=== PATIENT | male | born 1990 | race Caucasian/White ===

== ENCOUNTER 2022-05-02 11:07 | Emergency (ER) | payer OTHER, SELFPAY ==
[2022-05-02 11:15] VITALS: BP 154/94; PULSE 88; RESP 16; TEMP 36.8; O2SAT 96; BMI 33.3
[2022-05-02 11:41] LABS: Add Manual Diff / Slide Review NO; Basophils Absolute Auto 0 /uL (0-100); Basophils Percent Auto 0.4 % (0-2); Eosinophils Absolute Auto 100 /uL (0-450); Eosinophils Percent Auto 0.8 % (2-4); Hematocrit 46.7 % (41-53); Hemoglobin 16.4 g/dL (13.5-17.5); Lymphocytes Absolute Auto 1600 /uL (1100-4500); Lymphocytes Percent Auto 22.6 % (25-40); Mean Corpuscular Hemoglobin 30.1 PG (26-34); Monocytes Absolute Auto 600 /uL (0-900); Neutrophils Absolute Auto 5000 /uL (1500-7000); Neutrophils Percent Auto 68.2 % (50-75); Platelet Count 265 X10^3/uL (150-400); Red Blood Cell Count 5.43 X10^6/uL (4.5-5.9); Red Cell Distribution Width 13.3 % (11.6-14.8); White Blood Cell Count 7.3 X10^3/uL (4.5-11.0)
[2022-05-02 11:50] LABS: Alanine Aminotransferase 66 IU/L (<50); Albumin 4.5 g/dL (3.5-5.0); Albumin Globulin Ratio 1.5 (1.0-2.8); Alkaline Phosphatase 77 U/L (38-126); Aspartate Aminotransferase 32 IU/L (17-59); Bilirubin Total 0.7 mg/dL (0.2-1.3); Blood Urea Nitrogen 19 mg/dL (9-20); Calcium 8.9 mg/dL (8.4-10.2); Carbon Dioxide 27 mmol/L (22-32); Chloride 102 mmol/L (98-107); Estimated Glomerular Filt Rate > 60 mL/min (>60); Globulin 3.1 g/dL (1.7-4.1); Glucose 94 mg/dL (70-100); HEMOLYSIS < 15 (0-50); Lipase 81 U/L (23-300); Potassium 4.3 mmol/L (3.4-5.1); Sodium 136 mmol/L (137-145); Total Protein 7.6 g/dL (6.3-8.2)
--- NOTE | 2022-05-02 12:49 | DI.CT.S_ITS ---
PROCEDURE: CT ABDOMEN PELVIS W CON INDICATIONS: LLQ pain, blood in stool TECHNIQUE: After the administration of IV contrast, axial sections were acquired from the lung bases to the pubic symphysis. Coronal and sagittal reformats were performed. For radiation dose reduction, the following was used: automated exposure control, adjustment of mA and/or kV according to patient size. COMPARISON: None. FINDINGS: Image quality: Excellent. Lung bases: Unremarkable. Heart: No significant findings. ABDOMEN: Liver: Hepatic steatosis is present. Gallbladder: Unremarkable. Biliary ducts: Unremarkable. Pancreas: Unremarkable. Spleen: Unremarkable. Adrenal Glands: Unremarkable. Kidneys and Ureters: Unremarkable. Stomach and Bowel: Stomach, small bowel loops, and colon are unremarkable. Appendix is normal. Peritoneum: No abnormal intraperitoneal fluid. No free air. Ventral Wall: No hernia. Abdominal Nodes: No retroperitoneal or mesenteric adenopathy by size criteria. Vessels: Aorta and inferior vena cava are normal in size. PELVIS: Pelvic Organs: Unremarkable. Bladder: Unremarkable. Pelvic Nodes: No enlarged lymph nodes. Miscellaneous: Bilateral fat containing inguinal hernias are present. Bones: Unremarkable. IMPRESSION: No acute intra-abdominal or pelvic process. Dictated by: Sandy Taylor M.D. on 05/02/2022 at 13:27 Approved by: Sandy Taylor M.D. on 05/02/2022 at 13:29
[2022-05-02] MEDS: MORPHINE 4 MG/ML INJ IV (13:31)
--- NOTE | 2022-05-02 13:56 | ED_ITS ---
HPI - GI Bleed <Manjit Irene PA-C - Last Filed: 05/02/22 14:04> General Chief complaint: GI Bleed Stated complaint: Blood In stool Time Seen by Provider: 05/02/22 12:06 Source: patient and family Mode of arrival: Ambulatory History of Present Illness HPI Narrative: 31-year-old male with no reported past medical history presents to the ED with 2 days of left lower quadrant pain. Patient also endorses some blood mixed into his stool this morning. Patient states his left lower quadrant pain started yesterday, saw the blood in the stool this morning which brought him to the ED. patient endorses that he has a history of hemorrhoids and anal fissures for which she sees a GI specialist. Patient also endorses a history of constipation. Patient states that the pain was severe enough as it came in waves to cause him to feel nausea and he felt hot flashes. Patient denies fever, chills, chest pain, shortness of breath, vomiting, dysuria, diarrhea, lightheadedness, dizziness, syncope. Related Data Allergies Allergy/AdvReac Type Severity Reaction Status Date / Time latex Allergy Verified 05/02/22 11:32 Review of Systems <Manjit Irene PA-C - Last Filed: 05/02/22 14:04> Review of Systems ROS Unobtainable: All systems reviewed & are unremarkable except as noted in HPI and below Constitutional Constitutional: Denies chills, Denies fatigue, Denies fever(s), Denies frequent falls, Denies lethargy and Denies weakness Eyes Eyes: Denies change in vision, Denies eye discharge, Denies irritation and Denies loss of vision ENT Ears, Nose, Mouth, and Throat: Denies change in voice, Denies dizziness, Denies neck pain, Denies sore throat and Denies throat swelling Cardiovascular Cardiovascular: Denies chest pain, Denies irregular heart rhythm, Denies lightheadedness, Denies palpitations, Denies dyspnea, Denies dyspnea on exertion and Denies orthopnea Respiratory Respiratory: Denies cough, Denies dyspnea, Denies dyspnea on exertion and Denies wheezing Gastrointestinal Gastrointestinal: Reports abdominal pain, Reports hematochezia, Denies change in bowel habits, Denies diarrhea, Reports nausea and Denies vomiting Genitourinary Genitourinary: Denies hematuria, Denies flank pain, Denies urinary incontinence and Denies urinary urgency Musculoskeletal Musculoskeletal: Denies back pain, Denies muscle weakness, Denies neck pain, Denies numbness and Denies tingling Integumentary/Breasts Skin/Breast: Denies pruritus, Denies erythema, Denies rash and Denies wounds Neurologic Neurologic: Denies behavioral changes, Denies confusion, Denies dizziness, Denies frequent falls, Denies loss of vision, Denies numbness, Denies tingling and Denies weakness Psychiatric Psychiatric: Denies anxiety, Denies behavioral changes, Denies confusion, Denies depression, Denies homicidal ideation and Denies suicidal ideation Endocrine Endocrine: Denies fatigue, Denies flushing and Denies palpitations Hematologic/Lymphatic Hematologic/Lymphatic: Denies easy bruising Allergic/Immunologic Allergic/Immunologic: Denies urticaria, Denies throat swelling and Denies wh eezing Patient History <Manjit Irene PA-C - Last Filed: 05/02/22 14:04> Social History Smoking Status: Current every day smoker Smoking Status: Current every day smoker tobacco type: vaping Substance Use Type: does not use Exam <Manjit Irene PA-C - Last Filed: 05/02/22 14:04> Narrative Exam Narrative: Const General:?cooperative, healthy appearing and comfortable [facility] Head:?normal to inspection Ears:?hearing grossly normal bilaterally Nose:?external nose normal Face and sinus:?normal facial exam and sinuses nontender Mouth:?oral mucosae normal Throat:?posterior oropharynx normal Eyes General:?appearance normal, both eyes and all related structures Neck Neck:?normal visual inspection and no lymphadenopathy noted Resp Effort & Inspection:?normal respiratory effort Auscultation:?clear to auscultation bilaterally Cardio Rate:?regular rate Rhythm:?regular rhythm GI Abdomen is soft, nondistended. Abdomen is tender to palpation in the left lower quadrant. Neuro General:?patient alert, patient awake and patient oriented x3 Initial Vital Signs Initial Vital Signs: Vital Signs Temperature 98.2 F 05/02/22 11:15 Pulse Rate 88 05/02/22 11:15 Respiratory Rate 16 05/02/22 11:15 Blood Pressure 154/94 H 05/02/22 11:15 Pulse Oximetry 96 05/02/22 11:15 Oxygen Delivery Method Room Air 05/02/22 11:15 <Calixto Chicas MD - Last Filed: 05/14/22 20:55> Initial Vital Signs Initial Vital Signs: Vital Signs Temperature 98.2 F 05/02/22 11:15 Pulse Rate 88 05/02/22 11:15 Respiratory Rate 16 05/02/22 11:15 Blood Pressure 154/94 H 05/02/22 11:15 Pulse Oximetry 96 05/02/22 11:15 Oxygen Delivery Method Room Air 05/02/22 11:15 Course <Manjit Irene PA-C - Last Filed: 05/02/22 14:04> Orders Ordered: Discontinued Medications Morphine Sulfate (Morphine 4 Mg/Ml Inj) 4 mg IV NOW ONE Stop: 05/02/22 12:50 Last Admin: 05/02/22 13:31 Dose: 4 mg Documented By: NR Ondansetron HCl (Ondansetron 4 Mg/2 Ml Inj) 4 mg IV NOW PRN PRN Reason: Nausea And Vomiting Vital Signs Vital signs: Vital Signs - 8 hr 05/02/22 11:15 Temperature 98.2 F Pulse Rate 88 Respiratory Rate 16 Blood Pressure 154/94 H Pulse Oximetry 96 Oxygen Delivery Method Room Air <Calixto Chicas MD - Last Filed: 05/14/22 20:55> Orders Ordered: Discontinued Medications Morphine Sulfate (Morphine 4 Mg/Ml Inj) 4 mg IV NOW ONE Stop: 05/02/22 12:50 Last Admin: 05/02/22 13:31 Dose: 4 mg Documented By: NR Ondansetron HCl (Ondansetron 4 Mg/2 Ml Inj) 4 mg IV NOW PRN PRN Reason: Nausea And Vomiting Vital Signs Vital signs: Vital Signs - 8 hr 05/02/22 11:15 Temperature 98.2 F Pulse Rate 88 Respiratory Rate 16 Blood Pressure 154/94 H Pulse Oximetry 96 Oxygen Delivery Method Room Air MDM - GI Bleed <Manjit Irene PA-C - Last Filed: 05/02/22 14:04> Lab Data 05/02/22 11:27 05/02/22 11:27 Labs: Lab Results 05/02/22 05/02/22 Range/Units 11:27 11:27 WBC 7.3 (4.5-11.0) X10^3/uL RBC 5.43 (4.5-5.9) X10^6/uL Hgb 16.4 (13.5-17.5) g/dL Hct 46.7 (41-53) % MCV 86.0 (80-100) fL MCH 30.1 (26-34) PG MCHC 35.0 (30-36) % RDW 13.3 (11.6-14.8) % Plt Count 265 (150-400) X10^3/uL Neut % (Auto) 68.2 (50-75) % Lymph % (Auto) 22.6 L (25-40) % Mccreary % (Auto) 8.0 (3-14) % Eos % (Auto) 0.8 L (2-4) % Baso % (Auto) 0.4 (0-2) % Neut # (Auto) 5000 (1248-8556) /uL Lymph # (Auto) 1600 (1121-2097) /uL Mccreary # (Auto) 600 (0-900) /uL Eos # (Auto) 100 (0-450) /uL Baso # (Auto) 0 (0-100) /uL Sodium 136 L (137-145) mmol/L Potassium 4.3 (3.4-5.1) mmol/L Chloride 102 (98-107) mmol/L Carbon Dioxide 27 (22-32) mmol/L BUN 19 (9-20) mg/dL Creatinine 1.19 (0.66-1.25) mg/dL Estimated GFR > 60 (>60) mL/min BUN/Creatinine Ratio 16.0 (6-22) Glucose 94 (70-100) mg/dL Calcium 8.9 (8.4-10.2) mg/dL Total Bilirubin 0.7 (0.2-1.3) mg/dL AST 32 (17-59) IU/L ALT 66 H (<50) IU/L Alkaline Phosphatase 77 (38-126) U/L Total Protein 7.6 (6.3-8.2) g/dL Albumin 4.5 (3.5-5.0) g/dL Globulin 3.1 (1.7-4.1) g/dL Albumin/Globulin Ratio 1.5 (1.0-2.8) Lipase 81 (23-300) U/L MDM Narrative Medical decision making narrative: 31-year-old male with no reported past medical history presents to the ED with 2 days of left lower quadrant pain. Concern for diverticulitis versus constipation versus hemorrhoids versus anal fissure versus upper GI bleed versus other. Will obtain labs, lipase, CT abdomen pelvis. Will give morphine for pain. Labs within normal limits. H&H stable at 16.4/46.7. CT abdomen pelvis with no acute findings. There was an incidental finding of 2 fat containing inguinal hernias. Discussed findings with patient. Patient agrees to follow a bowel regimen with MiraLax nightly to manage his constipation and he will the hemorrhoids and anal fissure. Patient agrees to follow-up with his GI as soon as possible. Patient remained stable in the ED, pain well controlled. ED return precautions were discussed with patient. Patient verbalized understanding. Medical records reviewed: Yes <Calixto Chicas MD - Last Filed: 05/14/22 20:55> Lab Data Labs: Lab Results 05/02/22 05/02/22 Range/Units 11:27 11:27 WBC 7.3 (4.5-11.0) X10^3/uL RBC 5.43 (4.5-5.9) X10^6/uL Hgb 16.4 (13.5-17.5) g/dL Hct 46.7 (41-53) % MCV 86.0 (80-100) fL MCH 30.1 (26-34) PG MCHC 35.0 (30-36) % RDW 13.3 (11.6-14.8) % Plt Count 265 (150-400) X10^3/uL Neut % (Auto) 68.2 (50-75) % Lymph % (Auto) 22.6 L (25-40) % Mccreary % (Auto) 8.0 (3-14) % Eos % (Auto) 0.8 L (2-4) % Baso % (Auto) 0.4 (0-2) % Neut # (Auto) 5000 (6557-9214) /uL Lymph # (Auto) 1600 (2255-8686) /uL Mccreary # (Auto) 600 (0-900) /uL Eos # (Auto) 100 (0-450) /uL Baso # (Auto) 0 (0-100) /uL Sodium 136 L (137-145) mmol/L Potassium 4.3 (3.4-5.1) mmol/L Chloride 102 (98-107) mmol/L Carbon Dioxide 27 (22-32) mmol/L BUN 19 (9-20) mg/dL Creatinine 1.19 (0.66-1.25) mg/dL Estimated GFR > 60 (>60) mL/min BUN/Creatinine Ratio 16.0 (6-22) Glucose 94 (70-100) mg/dL Calcium 8.9 (8.4-10.2) mg/dL Total Bilirubin 0.7 (0.2-1.3) mg/dL AST 32 (17-59) IU/L ALT 66 H (<50) IU/L Alkaline Phosphatase 77 (38-126) U/L Total Protein 7.6 (6.3-8.2) g/dL Albumin 4.5 (3.5-5.0) g/dL Globulin 3.1 (1.7-4.1) g/dL Albumin/Globulin Ratio 1.5 (1.0-2.8) Lipase 81 (23-300) U/L Discharge Plan Departure Patient Disposition: Home Clinical Impression: Abdominal pain Instructions: DI for Abdominal Pain-Adult Activity Restrictions/Additional Instructions: You were evaluated for abdominal pain, blood in the stool. Your labs are normal and there is no evidence of anemia. Your CT abdomen pelvis did not show any acute findings that would explain your symptoms. The CT did show bilateral fat containing inguinal hernias, however they should not be causing your symptoms currently. Please follow-up with your PCP and GI as soon as possible. You may take MiraLax as a bowel regimen nightly to avoid constipation and heal those anal fissures. The blood in the stool is likely from the anal fissures and are or hemorrhoids. Return to the ED if you have worsening symptoms including worsening abdominal pain, fever, chills. Stand Alone Forms: Patient Portal/API <Calixto Chicas MD - Last Filed: 05/14/22 20:55> Cosign ED Attending Cosjeffersonature Attestation: I was immediately available in the department for consultation. This documentation has been reviewed and I agree with assessment and plan. Supervised by Calixto Chicas MD
[2022-05-02 13:59] VITALS: BP 112/75; PULSE 73; O2SAT 96
== END 2022-05-02 14:01 | disposition home or self-care (01) ==
PROVIDERS: Emergency Medicine; Emergency Provider Student in an Organized Health Care Education/Training Program
DX: R10.32 Left lower quadrant pain (principal)
CPT/HCPCS: 36415; 74177; 80053; 83690; 85025; 96374; 99284; J2270; Q9967